=== PATIENT | male | born 1935 | race Asian ===

== ENCOUNTER 2017-11-18 14:03 | Emergency (ER) | payer OTHER ==
[~2017-11-18] VITALS: Ht 170.2 cm; Wt 86.2 kg
[~2017-11-18 14:03] MED LIST: ALBUAER3 IN; APIX2.5T PO; DEXT1SYP9 PO; DIG0125T PO; ENA2.5T PO; Furosemide PO; LEVO750T64 PO; METO50TA7 PO; POT10T PO
[2017-11-18 15:17] LABS: Basophils # (auto) 0.1 uL; Basophils % (auto) 1.3 % (0.0-2.0); Eosinophils # (auto) 0.5 uL; Hematocrit 39.8 % (41.0-53.0); Lymphocytes # (auto) 1.7 uL; Lymphocytes % (auto) 26.4 % (10.0-50.0); Mean Corpuscular Hemoglobin 29.7 pg (28.0-32.0); Mean Corpuscular Hgb Conc. 32.7 g/dL (32.0-36.0); Mean Corpuscular Volume 90.8 fL (80.0-100.0); Monocytes # (auto) 0.6 uL; Monocytes % (auto) 8.7 % (0.0-12.0); Neutrophils # (auto) 3.7 uL; Neutrophils % (auto) 56.6 % (37.0-80.0); Nucleated Red Blood Cells % 0.1 %; Platelet Count (auto) 167 10^3/uL (140-450); Red Blood Cells 4.38 10^6/uL (4.5-5.90); Red Cell Distribution Width 14.1 % (11.8-14.3); White Blood Cell 6.5 10^3/uL (4.4-10.8)
[2017-11-18 15:38] LABS: Albumin 3.2 g/dL (3.4-5.0); BUN/Creatinine Ratio 16.4; Bilirubin, Total 0.2 mg/dL (0.2-1.0); Calcium 8.5 mg/dL (8.5-10.1); Potassium 4.5 mmol/L (3.5-5.1); Total Protein 7.6 g/dL (6.4-8.2)
[2017-11-18 15:39] LABS: Urine Bacteria MOD /hpf (None Seen); Urine Blood 3+ /uL (Negative); Urine Mucus FEW (None Seen); Urine WBC 331 /hpf (0 - 3)
[2017-11-18 22:17] VITALS: BP 166/86
[2017-11-18] MEDS ORDERED: cefTRIAXone SOD 1,000 MG VL ONE (23:14)
[2017-11-18] MEDS ORDERED: cefTRIAXone 1GM/10ml IVPUSH 10 ML IV ONE (23:15)
== END 2017-11-19 00:21 | disposition home or self-care (01) ==
LOC: ER 14:03
DX: N39.0 Urinary tract infection, site not specified (principal); N42.9 Disorder of prostate, unspecified; R42 Dizziness and giddiness; I48.91 Unspecified atrial fibrillation; I25.10 Atherosclerotic heart disease of native coronary artery without angina pectoris; I13.0 Hypertensive heart and chronic kidney disease with heart failure and stage 1 through stage 4 chronic kidney disease, or unspecified chronic kidney disease; E11.22 Type 2 diabetes mellitus with diabetic chronic kidney disease; N18.9 Chronic kidney disease, unspecified; I50.9 Heart failure, unspecified; E78.5 Hyperlipidemia, unspecified; Z95.0 Presence of cardiac pacemaker; Z88.8 Allergy status to other drugs, medicaments and biological substances
CPT/HCPCS: 36415; 80053; 81001; 85025; 96374; 99284; J0696

== ENCOUNTER 2017-11-22 14:06 | Inpatient (IN) | payer OTHER ==
[~2017-11-22] VITALS: Ht 172.7 cm; Wt 89.3 kg
[2017-11-22] MEDS ORDERED: cefTRIAXone 1GM/10ml IVPUSH 10 ML IV ONE (15:15)
[2017-11-22 16:39] LABS: Hematocrit 39.8 % (41.0-53.0); Hemoglobin 12.8 g/dL (13.5-17.5); Mean Corpuscular Hemoglobin 29.2 pg (28.0-32.0); Mean Corpuscular Hgb Conc. 32.2 g/dL (32.0-36.0); Mean Corpuscular Volume 90.6 fL (80.0-100.0); Platelet Count (auto) 152 10^3/uL (140-450); Red Blood Cells 4.39 10^6/uL (4.5-5.90); Red Cell Distribution Width 14.1 % (11.8-14.3); White Blood Cell 4.5 10^3/uL (4.4-10.8)
[2017-11-22 16:43] LABS: Magnesium 2.3 mg/dL (1.6-2.6)
[2017-11-22 16:45] LABS: Albumin 3.1 g/dL (3.4-5.0); BUN/Creatinine Ratio 14.4; Bilirubin, Total 0.2 mg/dL (0.2-1.0); Calcium 8.1 mg/dL (8.5-10.1); Potassium 4.3 mmol/L (3.5-5.1); Total Protein 7.5 g/dL (6.4-8.2)
[2017-11-22 17:05] LABS: INR 0.97 (0.9-1.15); Partial Thromboplastin Time 27.5 sec (22.64-33.71); Prothrombin Time 10.6 sec (9.37-12.3)
[2017-11-22 17:16] LABS: Band Neutrophils % (manual) 0; Basophils % (manual) 0 (0.0-2.0); Blast Cells 0; Metamyelocytes % 0; Myelocytes % 0; Promyelocytes % 0; Reactive Lymphocytes 0
[2017-11-22] MEDS ORDERED: ASPirin-EC 81 mg tab PO ONE (17:30)
[2017-11-22] MEDS ORDERED: AZITHROMYCIN 500MG/ 250ML 250 ML IV ONE (17:30)
[2017-11-22 19:19] LABS: Eosinophils % (manual) 16 (0-7); Lymphocytes % (manual) 16 (10.0-50.0); Monocytes % (manual) 14 (0-12)
[2017-11-22] MEDS ORDERED: ACETAMINOPHEN 500 MG TAB PO PRN (21:30)
[2017-11-22] MEDS ORDERED: ONDANSETRON HCL 4 MG/2 ML VIAL IV PRN (21:30)
[2017-11-22] MEDS ORDERED: DEXTROSE (50%) 50ML SYRG IV PRN (21:30)
[2017-11-22] MEDS: InsuLIN REG 1unit/0.01ml Soln (100units/ml) SC SCH (21:48)
[2017-11-22] MEDS: APIXABAN 2.5 MG TAB PO SCH (21:48)
[2017-11-22] MEDS: ACCU-CHEK COMFORT CURVE STRIP VI SCH (21:49)
[2017-11-22 22:21] LABS: BUN/Creatinine Ratio 12.9; Calcium 8.2 mg/dL (8.5-10.1); Potassium 4.1 mmol/L (3.5-5.1)
[2017-11-22] MEDS ORDERED: methylPREDNISolone SOD SUCC 125 MG/2 ML VL ONE (22:38)
[2017-11-22 22:42] LABS: Basophils # (auto) 0 uL; Basophils % (auto) 0.5 % (0.0-2.0); Eosinophils # (auto) 0.3 uL; Eosinophils % (auto) 5.7 % (0.0-7.0); Hematocrit 39.1 % (41.0-53.0); Hemoglobin 12.7 g/dL (13.5-17.5); Lymphocytes # (auto) 0.6 uL; Lymphocytes % (auto) 12.5 % (10.0-50.0); Mean Corpuscular Hemoglobin 29.2 pg (28.0-32.0); Mean Corpuscular Hgb Conc. 32.5 g/dL (32.0-36.0); Mean Corpuscular Volume 89.8 fL (80.0-100.0); Monocytes # (auto) 0.8 uL; Monocytes % (auto) 15.6 % (0.0-12.0); Neutrophils # (auto) 3.1 uL; Neutrophils % (auto) 65.7 % (37.0-80.0); Nucleated Red Blood Cells % 0.2 %; Platelet Count (auto) 161 10^3/uL (140-450); Red Blood Cells 4.35 10^6/uL (4.5-5.90); White Blood Cell 4.8 10^3/uL (4.4-10.8)
[2017-11-22] MEDS ORDERED: methylPREDNISolone SOD SUCC 125 MG/2 ML VL IV ONE (22:45)
[2017-11-22] MEDS: ALBUTEROL SULF 2.5 MG/0.5ML(0.5%) NEB SOLN NEB SCH (23:40)
[2017-11-22] MEDS: IPRATROPIUM BROM 0.5 MG/2.5ML INH SOL NEB SCH (23:40)
[2017-11-22 23:46] LABS: Urine Bacteria FEW /hpf (None Seen); Urine Blood 3+ /uL (Negative); Urine Mucus FEW (None Seen); Urine Specific Gravity 1.021 (1.001-1.035); Urine WBC 56 /hpf (0 - 3)
[2017-11-23] MEDS: HYDROcodone-ACET 5/325MG TAB PO PRN ×2 (01:11→21:54)
[2017-11-23] MEDS ORDERED: FUROSEMIDE 40 MG/4 ML VIAL ONE (01:20)
[2017-11-23] MEDS ORDERED: FUROSEMIDE 40 MG/4 ML VIAL IV ONE (01:30)
[2017-11-23 01:42] VITALS: BP 165/93
[2017-11-23 05:47] LABS: Basophils # (auto) 0 uL; Basophils % (auto) 0.3 % (0.0-2.0); Eosinophils # (auto) 0 uL; Eosinophils % (auto) 0.1 % (0.0-7.0); Hematocrit 40.1 % (41.0-53.0); Hemoglobin 13.4 g/dL (13.5-17.5); Lymphocytes # (auto) 0.4 uL; Mean Corpuscular Hemoglobin 29.5 pg (28.0-32.0); Mean Corpuscular Hgb Conc. 33.4 g/dL (32.0-36.0); Mean Corpuscular Volume 88.2 fL (80.0-100.0); Monocytes # (auto) 0.1 uL; Monocytes % (auto) 1.6 % (0.0-12.0); Neutrophils # (auto) 3.4 uL; Platelet Count (auto) 175 10^3/uL (140-450); Red Blood Cells 4.55 10^6/uL (4.5-5.90); Red Cell Distribution Width 14.1 % (11.8-14.3); White Blood Cell 3.8 10^3/uL (4.4-10.8)
[2017-11-23 06:03] LABS: Potassium 4.1 mmol/L (3.5-5.1)
[2017-11-23 06:07] LABS: BUN/Creatinine Ratio 12.9; Calcium 8.7 mg/dL (8.5-10.1)
[2017-11-23] MEDS: ALBUTEROL SULF 2.5 MG/0.5ML(0.5%) NEB SOLN NEB SCH ×3 (06:49→20:56)
[2017-11-23] MEDS: IPRATROPIUM BROM 0.5 MG/2.5ML INH SOL NEB SCH ×3 (06:49→20:56)
[2017-11-23] MEDS: InsuLIN REG 1unit/0.01ml Soln (100units/ml) SC SCH ×4 (07:00→21:50)
[2017-11-23] MEDS: Boost Glucose Control 8 Ounces PO SCH (08:00)
[2017-11-23] MEDS: ACCU-CHEK COMFORT CURVE STRIP VI SCH ×4 (08:50→20:40)
[2017-11-23] MEDS: APIXABAN 2.5 MG TAB PO SCH ×2 (09:32→20:30)
[2017-11-23] MEDS: POTASSIUM CHL 10 Meq TABLET PO SCH (09:33)
[2017-11-23] MEDS: FUROSEMIDE 20 MG TAB PO SCH (09:33)
[2017-11-23] MEDS: METOPROLOL SUCCINATE XL 50 MG TAB PO SCH (09:34)
[2017-11-23] MEDS ORDERED: ALLO100T PO (15:34)
[2017-11-23] MEDS ORDERED: LORA10CA12 PO (15:34)
[2017-11-23] MEDS ORDERED: cefTRIAXone 1GM/10ml IVPUSH 10 ML IV ONE (15:45)
[2017-11-23] MEDS ORDERED: AZITHROMYCIN 500MG/ 250ML 250 ML IV ONE (15:45)
[2017-11-23 17:00] VITALS: BP 138/85
[2017-11-23] MEDS: ENALAPRIL MALEATE 2.5 MG TAB PO SCH (20:31)
[2017-11-24] VITALS (8 sets, daily range): BP systolic 121–151; BP diastolic 67–86
[2017-11-24] MEDS: IPRATROPIUM BROM 0.5 MG/2.5ML INH SOL NEB SCH ×5 (01:32→22:09)
[2017-11-24] MEDS: ALBUTEROL SULF 2.5 MG/0.5ML(0.5%) NEB SOLN NEB SCH ×5 (01:32→22:08)
[2017-11-24] MEDS: ACCU-CHEK COMFORT CURVE STRIP VI SCH ×4 (05:30→22:08)
[2017-11-24] MEDS: InsuLIN REG 1unit/0.01ml Soln (100units/ml) SC SCH ×4 (05:30→22:19)
[2017-11-24 06:02] LABS: Basophils # (auto) 0 uL; Eosinophils # (auto) 0 uL; Hematocrit 40.1 % (41.0-53.0); Hemoglobin 13.2 g/dL (13.5-17.5); Lymphocytes # (auto) 0.9 uL; Lymphocytes % (auto) 12.3 % (10.0-50.0); Mean Corpuscular Hemoglobin 29.4 pg (28.0-32.0); Mean Corpuscular Hgb Conc. 32.8 g/dL (32.0-36.0); Mean Corpuscular Volume 89.6 fL (80.0-100.0); Monocytes % (auto) 12.7 % (0.0-12.0); Neutrophils # (auto) 5.8 uL; Platelet Count (auto) 181 10^3/uL (140-450); Red Blood Cells 4.48 10^6/uL (4.5-5.90); White Blood Cell 7.7 10^3/uL (4.4-10.8)
[2017-11-24] MEDS: guaiFENesin 200 MG/10 ML UD GT PRN ×3 (06:17→17:58)
[2017-11-24 06:20] LABS: Albumin 3.2 g/dL (3.4-5.0); Calcium 8.5 mg/dL (8.5-10.1); Potassium 3.9 mmol/L (3.5-5.1)
[2017-11-24 06:23] LABS: BUN/Creatinine Ratio 20.6
[2017-11-24 06:26] LABS: Bilirubin, Total 0.2 mg/dL (0.2-1.0); Total Protein 7.8 g/dL (6.4-8.2)
[2017-11-24] MEDS: Boost Glucose Control 8 Ounces PO SCH ×3 (08:00→18:00)
[2017-11-24] MEDS: cefTRIAXone 1GM/10ml IVPUSH 10 ML IV SCH (09:37)
[2017-11-24] MEDS ORDERED: AZITHROMYCIN 500MG/ 250ML 250 ML IV SCH (10:00)
[2017-11-24] MEDS: APIXABAN 2.5 MG TAB PO SCH ×2 (10:36→21:58)
[2017-11-24] MEDS: POTASSIUM CHL 10 Meq TABLET PO SCH (10:37)
[2017-11-24] MEDS: ALLOPURINOL 100 MG TAB PO SCH (10:37)
[2017-11-24] MEDS: METOPROLOL SUCCINATE XL 50 MG TAB PO SCH (10:38)
[2017-11-24] MEDS: ENALAPRIL MALEATE 2.5 MG TAB PO SCH ×2 (10:38→21:59)
[2017-11-24] MEDS: FUROSEMIDE 20 MG TAB PO SCH (10:38)
[2017-11-24] MEDS ORDERED: methylPREDNISolone SOD SUCC 125 MG/2 ML VL IV ONE (13:45)
[2017-11-24] MEDS: methylPREDNISolone SOD SUCC 125 MG/2 ML VL IV SCH (22:01)
[2017-11-24] MEDS: LORazepam 0.5 MG TAB PO PRN (22:20)
[2017-11-24] MEDS ORDERED: DILTIAZEM HCL 25 MG/5 ML VIAL IV ONE (22:45)
[2017-11-25] VITALS (7 sets, daily range): BP systolic 119–149; BP diastolic 52–90
[2017-11-25] MEDS: IPRATROPIUM BROM 0.5 MG/2.5ML INH SOL NEB SCH ×6 (02:37→22:06)
[2017-11-25] MEDS: ALBUTEROL SULF 2.5 MG/0.5ML(0.5%) NEB SOLN NEB SCH ×6 (02:37→22:06)
[2017-11-25] MEDS ORDERED: guaiFENesin-DM 100/10mg/5ml SYR PO ONE (05:00)
[2017-11-25] MEDS: ACCU-CHEK COMFORT CURVE STRIP VI SCH ×4 (05:07→21:51)
[2017-11-25] MEDS: InsuLIN REG 1unit/0.01ml Soln (100units/ml) SC SCH ×4 (06:29→21:51)
[2017-11-25] MEDS ORDERED: NITROGLYCERIN 0.4 MG SL TAB SL PRN (06:30)
[2017-11-25] MEDS ORDERED: MORPHINE SULFATE 4 MG/ML SYR/VIAL IV PRN (06:30)
[2017-11-25 07:13] LABS: Basophils # (auto) 0 uL; Basophils % (auto) 0.1 % (0.0-2.0); Eosinophils # (auto) 0 uL; Hematocrit 38.5 % (41.0-53.0); Hemoglobin 12.6 g/dL (13.5-17.5); Lymphocytes # (auto) 0.6 uL; Lymphocytes % (auto) 11.1 % (10.0-50.0); Mean Corpuscular Hemoglobin 29.2 pg (28.0-32.0); Mean Corpuscular Hgb Conc. 32.7 g/dL (32.0-36.0); Mean Corpuscular Volume 89.4 fL (80.0-100.0); Monocytes # (auto) 0.1 uL; Monocytes % (auto) 2.6 % (0.0-12.0); Neutrophils # (auto) 4.6 uL; Neutrophils % (auto) 86.2 % (37.0-80.0); Platelet Count (auto) 187 10^3/uL (140-450); Red Blood Cells 4.31 10^6/uL (4.5-5.90); White Blood Cell 5.4 10^3/uL (4.4-10.8)
[2017-11-25 07:35] LABS: Albumin 3.1 g/dL (3.4-5.0); BUN/Creatinine Ratio 25.4; Bilirubin, Total 0.3 mg/dL (0.2-1.0); Calcium 8.3 mg/dL (8.5-10.1); Potassium 4.2 mmol/L (3.5-5.1); Total Protein 7.6 g/dL (6.4-8.2)
[2017-11-25] MEDS: Boost Glucose Control 8 Ounces PO SCH ×3 (08:34→17:57)
[2017-11-25] MEDS: HYDROcodone-ACET 5/325MG TAB PO PRN ×2 (10:30→21:47)
[2017-11-25] MEDS: cefTRIAXone 1GM/10ml IVPUSH 10 ML IV SCH (10:30)
[2017-11-25] MEDS: ALLOPURINOL 100 MG TAB PO SCH (10:30)
[2017-11-25] MEDS: POTASSIUM CHL 10 Meq TABLET PO SCH (10:31)
[2017-11-25] MEDS: AZITHROMYCIN 250 MG TAB PO SCH (10:31)
[2017-11-25] MEDS: FUROSEMIDE 20 MG TAB PO SCH (10:31)
[2017-11-25] MEDS: METOPROLOL SUCCINATE XL 50 MG TAB PO SCH (10:32)
[2017-11-25] MEDS: ENALAPRIL MALEATE 2.5 MG TAB PO SCH ×2 (10:32→21:46)
[2017-11-25] MEDS: APIXABAN 2.5 MG TAB PO SCH ×2 (10:33→21:46)
[2017-11-25] MEDS: methylPREDNISolone SOD SUCC 125 MG/2 ML VL IV SCH ×2 (10:36→21:45)
[2017-11-25] MEDS: guaiFENesin 200 MG/10 ML UD GT PRN (17:15)
[2017-11-26] MEDS: IPRATROPIUM BROM 0.5 MG/2.5ML INH SOL NEB SCH ×6 (02:00→22:21)
[2017-11-26] MEDS: ALBUTEROL SULF 2.5 MG/0.5ML(0.5%) NEB SOLN NEB SCH ×6 (02:00→22:21)
[2017-11-26 02:56] VITALS: BP 143/81
[2017-11-26 05:00] VITALS: BP 148/93
[2017-11-26] MEDS: guaiFENesin 200 MG/10 ML UD GT PRN ×2 (05:34→21:10)
[2017-11-26] MEDS: InsuLIN REG 1unit/0.01ml Soln (100units/ml) SC SCH ×4 (06:52→21:17)
[2017-11-26] MEDS: ACCU-CHEK COMFORT CURVE STRIP VI SCH ×4 (06:53→21:17)
[2017-11-26] MEDS: ENALAPRIL MALEATE 2.5 MG TAB PO SCH ×2 (06:57→21:12)
[2017-11-26] MEDS: Boost Glucose Control 8 Ounces PO SCH ×3 (08:50→18:06)
[2017-11-26 09:22] VITALS: BP 161/92
[2017-11-26] MEDS: cefTRIAXone 1GM/10ml IVPUSH 10 ML IV SCH (09:29)
[2017-11-26] MEDS: APIXABAN 2.5 MG TAB PO SCH ×2 (10:24→21:11)
[2017-11-26] MEDS: methylPREDNISolone SOD SUCC 125 MG/2 ML VL IV SCH ×2 (10:24→21:14)
[2017-11-26] MEDS: AZITHROMYCIN 250 MG TAB PO SCH (10:25)
[2017-11-26] MEDS: FUROSEMIDE 20 MG TAB PO SCH (10:25)
[2017-11-26] MEDS: ALLOPURINOL 100 MG TAB PO SCH (10:25)
[2017-11-26] MEDS: POTASSIUM CHL 10 Meq TABLET PO SCH (10:33)
[2017-11-26] MEDS: METOPROLOL SUCCINATE XL 50 MG TAB PO SCH (10:34)
[2017-11-26] MEDS: HYDROcodone-ACET 5/325MG TAB PO PRN ×2 (12:41→21:13)
[2017-11-26 13:00] VITALS: BP 127/71
[2017-11-26 17:00] VITALS: BP 143/79
[2017-11-26 22:03] VITALS: BP 152/80
[2017-11-27] MEDS: MORPHINE SULF INJ 2 MG/ML SYRINGE 1ML IV PRN ×2 (01:16→11:55)
[2017-11-27] MEDS: LORazepam 0.5 MG TAB PO PRN (01:23)
[2017-11-27] MEDS: ALBUTEROL SULF 2.5 MG/0.5ML(0.5%) NEB SOLN NEB SCH ×6 (02:00→22:35)
[2017-11-27] MEDS: IPRATROPIUM BROM 0.5 MG/2.5ML INH SOL NEB SCH ×6 (02:00→22:35)
[2017-11-27] MEDS: HYDROcodone-ACET 5/325MG TAB PO PRN ×2 (05:15→22:08)
[2017-11-27] MEDS: guaiFENesin 200 MG/10 ML UD GT PRN ×2 (05:15→22:28)
[2017-11-27 05:30] VITALS: BP 152/91
[2017-11-27] MEDS: ACCU-CHEK COMFORT CURVE STRIP VI SCH ×4 (06:18→22:27)
[2017-11-27] MEDS: InsuLIN REG 1unit/0.01ml Soln (100units/ml) SC SCH ×4 (06:18→22:00)
[2017-11-27 08:00] VITALS: BP 140/81
[2017-11-27] MEDS: cefTRIAXone 1GM/10ml IVPUSH 10 ML IV SCH (09:54)
[2017-11-27] MEDS: Boost Glucose Control 8 Ounces PO SCH ×3 (09:54→17:36)
[2017-11-27] MEDS: methylPREDNISolone SOD SUCC 125 MG/2 ML VL IV SCH ×2 (09:55→22:09)
[2017-11-27] MEDS: APIXABAN 2.5 MG TAB PO SCH ×2 (09:55→22:08)
[2017-11-27] MEDS: POTASSIUM CHL 10 Meq TABLET PO SCH (09:55)
[2017-11-27] MEDS: FUROSEMIDE 20 MG TAB PO SCH (09:56)
[2017-11-27] MEDS: AZITHROMYCIN 250 MG TAB PO SCH (09:56)
[2017-11-27] MEDS: ENALAPRIL MALEATE 2.5 MG TAB PO SCH ×2 (09:57→22:08)
[2017-11-27] MEDS: ALLOPURINOL 100 MG TAB PO SCH (09:57)
[2017-11-27] MEDS: METOPROLOL SUCCINATE XL 50 MG TAB PO SCH (09:57)
[2017-11-27 12:00] VITALS: BP 148/92
[2017-11-27 17:03] VITALS: BP 114/68
[2017-11-27 22:00] VITALS: BP 131/68
[2017-11-28] MEDS: IPRATROPIUM BROM 0.5 MG/2.5ML INH SOL NEB SCH ×6 (02:21→23:06)
[2017-11-28] MEDS: ALBUTEROL SULF 2.5 MG/0.5ML(0.5%) NEB SOLN NEB SCH ×6 (02:21→23:06)
[2017-11-28 05:00] VITALS: BP 142/71
[2017-11-28] MEDS: InsuLIN REG 1unit/0.01ml Soln (100units/ml) SC SCH ×4 (05:40→21:44)
[2017-11-28] MEDS: ACCU-CHEK COMFORT CURVE STRIP VI SCH ×4 (05:40→21:44)
[2017-11-28] MEDS: HYDROcodone-ACET 5/325MG TAB PO PRN (06:18)
[2017-11-28] MEDS: Boost Glucose Control 8 Ounces PO SCH ×3 (08:52→18:02)
[2017-11-28 09:00] VITALS: BP 155/81
[2017-11-28] MEDS: cefTRIAXone 1GM/10ml IVPUSH 10 ML IV SCH (09:35)
[2017-11-28] MEDS: METOPROLOL SUCCINATE XL 50 MG TAB PO SCH (09:45)
[2017-11-28] MEDS: methylPREDNISolone SOD SUCC 125 MG/2 ML VL IV SCH ×2 (09:45→21:12)
[2017-11-28] MEDS: FUROSEMIDE 20 MG TAB PO SCH (09:46)
[2017-11-28] MEDS: ENALAPRIL MALEATE 2.5 MG TAB PO SCH ×2 (09:46→21:12)
[2017-11-28] MEDS: ALLOPURINOL 100 MG TAB PO SCH (09:46)
[2017-11-28] MEDS: APIXABAN 2.5 MG TAB PO SCH ×2 (09:47→21:12)
[2017-11-28] MEDS: AZITHROMYCIN 250 MG TAB PO SCH (09:47)
[2017-11-28] MEDS: POTASSIUM CHL 10 Meq TABLET PO SCH (09:47)
[2017-11-28] MEDS: guaiFENesin 200 MG/10 ML UD GT PRN ×2 (11:10→21:13)
[2017-11-28 13:00] VITALS: BP 151/75
[2017-11-28] MEDS: MORPHINE SULF INJ 2 MG/ML SYRINGE 1ML IV PRN ×2 (14:47→21:09)
[2017-11-28 17:26] VITALS: BP 150/79
[2017-11-28 21:36] VITALS: BP 165/90
[2017-11-29] MEDS: ALBUTEROL SULF 2.5 MG/0.5ML(0.5%) NEB SOLN NEB SCH ×6 (02:52→22:08)
[2017-11-29] MEDS: IPRATROPIUM BROM 0.5 MG/2.5ML INH SOL NEB SCH ×6 (02:52→22:08)
[2017-11-29 05:19] VITALS: BP 153/78
[2017-11-29] MEDS: ACCU-CHEK COMFORT CURVE STRIP VI SCH ×4 (05:35→22:06)
[2017-11-29 05:50] LABS: Albumin 2.8 g/dL (3.4-5.0); BUN/Creatinine Ratio 42.7; Basophils # (auto) 0 uL; Basophils % (auto) 0.1 % (0.0-2.0); Calcium 8.1 mg/dL (8.5-10.1); Eosinophils # (auto) 0 uL; Hematocrit 38.2 % (41.0-53.0); Hemoglobin 12.2 g/dL (13.5-17.5); Lymphocytes # (auto) 0.7 uL; Lymphocytes % (auto) 7.5 % (10.0-50.0); Mean Corpuscular Hemoglobin 28.2 pg (28.0-32.0); Mean Corpuscular Volume 88.1 fL (80.0-100.0); Monocytes # (auto) 0.3 uL; Monocytes % (auto) 2.7 % (0.0-12.0); Neutrophils # (auto) 8.5 uL; Neutrophils % (auto) 89.7 % (37.0-80.0); Nucleated Red Blood Cells % 0.2 %; Platelet Count (auto) 178 10^3/uL (140-450); Potassium 4.5 mmol/L (3.5-5.1); Red Blood Cells 4.34 10^6/uL (4.5-5.90); Red Cell Distribution Width 13.9 % (11.8-14.3); White Blood Cell 9.4 10^3/uL (4.4-10.8)
[2017-11-29 05:53] LABS: Bilirubin, Total 0.2 mg/dL (0.2-1.0); Total Protein 6.6 g/dL (6.4-8.2)
[2017-11-29] MEDS: InsuLIN REG 1unit/0.01ml Soln (100units/ml) SC SCH ×4 (06:26→22:17)
[2017-11-29] MEDS: Boost Glucose Control 8 Ounces PO SCH ×3 (08:00→18:01)
[2017-11-29 09:00] VITALS: BP 136/74
[2017-11-29] MEDS: methylPREDNISolone SOD SUCC 125 MG/2 ML VL IV SCH ×2 (09:08→22:05)
[2017-11-29] MEDS: ALLOPURINOL 100 MG TAB PO SCH (09:09)
[2017-11-29] MEDS: METOPROLOL SUCCINATE XL 50 MG TAB PO SCH (09:09)
[2017-11-29] MEDS: APIXABAN 2.5 MG TAB PO SCH ×2 (09:09→22:05)
[2017-11-29] MEDS: POTASSIUM CHL 10 Meq TABLET PO SCH (09:09)
[2017-11-29] MEDS: FUROSEMIDE 20 MG TAB PO SCH (09:10)
[2017-11-29] MEDS: AZITHROMYCIN 250 MG TAB PO SCH (09:11)
[2017-11-29] MEDS: ENALAPRIL MALEATE 2.5 MG TAB PO SCH ×2 (09:12→22:06)
[2017-11-29] MEDS: cefTRIAXone 1GM/10ml IVPUSH 10 ML IV SCH (09:15)
[2017-11-29 12:30] VITALS: BP 145/75
[2017-11-29 13:00] VITALS: BP 168/96
[2017-11-29 16:58] VITALS: BP 134/74
[2017-11-29 22:00] VITALS: BP 157/78
[2017-11-30] MEDS: IPRATROPIUM BROM 0.5 MG/2.5ML INH SOL NEB SCH ×6 (02:28→23:17)
[2017-11-30] MEDS: ALBUTEROL SULF 2.5 MG/0.5ML(0.5%) NEB SOLN NEB SCH ×6 (02:28→23:18)
[2017-11-30 05:00] VITALS: BP 140/76
[2017-11-30 05:57] LABS: Basophils # (auto) 0 uL; Basophils % (auto) 0.1 % (0.0-2.0); Eosinophils # (auto) 0 uL; Hematocrit 38.9 % (41.0-53.0); Hemoglobin 12.6 g/dL (13.5-17.5); Lymphocytes # (auto) 0.6 uL; Lymphocytes % (auto) 6.4 % (10.0-50.0); Mean Corpuscular Hemoglobin 28.9 pg (28.0-32.0); Mean Corpuscular Hgb Conc. 32.4 g/dL (32.0-36.0); Mean Corpuscular Volume 89.2 fL (80.0-100.0); Monocytes # (auto) 0.2 uL; Monocytes % (auto) 2.7 % (0.0-12.0); Neutrophils # (auto) 8.3 uL; Neutrophils % (auto) 90.8 % (37.0-80.0); Nucleated Red Blood Cells % 0.2 %; Platelet Count (auto) 185 10^3/uL (140-450); Red Blood Cells 4.36 10^6/uL (4.5-5.90); Red Cell Distribution Width 14.1 % (11.8-14.3); White Blood Cell 9.1 10^3/uL (4.4-10.8)
[2017-11-30 06:13] LABS: INR 1.1 (0.9-1.15); Partial Thromboplastin Time 25.4 sec (22.64-33.71)
[2017-11-30] MEDS: InsuLIN REG 1unit/0.01ml Soln (100units/ml) SC SCH ×3 (06:27→21:55)
[2017-11-30] MEDS: ACCU-CHEK COMFORT CURVE STRIP VI SCH ×3 (06:27→21:54)
[2017-11-30 06:44] LABS: BUN/Creatinine Ratio 41.5
[2017-11-30] MEDS: Boost Glucose Control 8 Ounces PO SCH ×2 (08:00→12:00)
[2017-11-30 09:00] VITALS: BP 143/74
[2017-11-30] MEDS: HYDROcodone-ACET 5/325MG TAB PO PRN ×2 (09:13→21:11)
[2017-11-30] MEDS: ENALAPRIL MALEATE 2.5 MG TAB PO SCH ×2 (09:14→21:56)
[2017-11-30] MEDS: methylPREDNISolone SOD SUCC 125 MG/2 ML VL IV SCH ×2 (09:15→21:55)
[2017-11-30] MEDS: cefTRIAXone 1GM/10ml IVPUSH 10 ML IV SCH (09:15)
[2017-11-30] MEDS: METOPROLOL SUCCINATE XL 50 MG TAB PO SCH (09:17)
[2017-11-30] MEDS: ALLOPURINOL 100 MG TAB PO SCH (10:00)
[2017-11-30] MEDS: POTASSIUM CHL 10 Meq TABLET PO SCH (10:00)
[2017-11-30] MEDS: AZITHROMYCIN 250 MG TAB PO SCH (10:00)
[2017-11-30] MEDS: FUROSEMIDE 20 MG TAB PO SCH (10:00)
[2017-11-30] MEDS: APIXABAN 2.5 MG TAB PO SCH ×2 (10:00→21:55)
[2017-11-30] MEDS ORDERED: IOHEXOL 350 MG/ML 100ML IJ ONE (10:34)
[2017-11-30] MEDS ORDERED: LIDOCAINE 2%HCL (LOCAL ANESTH.) INJ 20ML MDV ONE (10:34)
[2017-11-30] MEDS ORDERED: MIDAZOLAM HCL 1MG/1ML-2 ML VIAL ONE (11:17)
[2017-11-30] MEDS ORDERED: fentaNYL CITRATE 100 MCG/2 ML VL ONE (11:17)
[2017-11-30] MEDS ORDERED: ANGIOMAX 250 MG VIAL IV ONE (11:17)
[2017-11-30] MEDS ORDERED: CLOPIDOGREL 300 MG TAB ONE (12:11)
[2017-11-30 17:00] VITALS: BP 138/75
[2017-11-30 21:22] VITALS: BP 135/74
[2017-12-01] MEDS: IPRATROPIUM BROM 0.5 MG/2.5ML INH SOL NEB SCH ×6 (02:00→21:59)
[2017-12-01] MEDS: ALBUTEROL SULF 2.5 MG/0.5ML(0.5%) NEB SOLN NEB SCH ×6 (02:00→21:59)
[2017-12-01 05:15] VITALS: BP 140/72
[2017-12-01] MEDS: InsuLIN REG 1unit/0.01ml Soln (100units/ml) SC SCH ×4 (06:10→21:30)
[2017-12-01] MEDS: ACCU-CHEK COMFORT CURVE STRIP VI SCH ×4 (06:10→21:14)
[2017-12-01] MEDS: Boost Glucose Control 8 Ounces PO SCH ×3 (08:00→18:10)
[2017-12-01 08:51] VITALS: BP 149/83
[2017-12-01] MEDS: cefTRIAXone 1GM/10ml IVPUSH 10 ML IV SCH (09:35)
[2017-12-01] MEDS: CLOPIDOGREL BISULFATE 75 MG TAB PO SCH (10:40)
[2017-12-01] MEDS: AZITHROMYCIN 250 MG TAB PO SCH (10:42)
[2017-12-01] MEDS: ALLOPURINOL 100 MG TAB PO SCH (10:43)
[2017-12-01] MEDS: ENALAPRIL MALEATE 2.5 MG TAB PO SCH ×2 (10:46→21:13)
[2017-12-01] MEDS: APIXABAN 2.5 MG TAB PO SCH ×2 (10:47→21:14)
[2017-12-01] MEDS: FUROSEMIDE 20 MG TAB PO SCH (10:47)
[2017-12-01] MEDS: methylPREDNISolone SOD SUCC 125 MG/2 ML VL IV SCH ×2 (10:48→21:13)
[2017-12-01] MEDS: METOPROLOL SUCCINATE XL 50 MG TAB PO SCH (10:52)
[2017-12-01] MEDS: POTASSIUM CHL 10 Meq TABLET PO SCH (10:52)
[2017-12-01 12:52] VITALS: BP 136/71
[2017-12-01 16:40] VITALS: BP 132/81
[2017-12-01 20:00] VITALS: BP 149/83
[2017-12-01 21:30] VITALS: BP 150/81
[2017-12-02] MEDS: ALBUTEROL SULF 2.5 MG/0.5ML(0.5%) NEB SOLN NEB SCH ×4 (03:05→14:00)
[2017-12-02] MEDS: IPRATROPIUM BROM 0.5 MG/2.5ML INH SOL NEB SCH ×4 (03:05→14:00)
[2017-12-02 05:00] VITALS: BP 143/80
[2017-12-02] MEDS: InsuLIN REG 1unit/0.01ml Soln (100units/ml) SC SCH ×2 (06:24→12:30)
[2017-12-02] MEDS: ACCU-CHEK COMFORT CURVE STRIP VI SCH ×2 (06:24→12:30)
[2017-12-02 08:00] VITALS: BP 158/86
[2017-12-02 09:00] VITALS: BP 158/86
[2017-12-02] MEDS: CLOPIDOGREL BISULFATE 75 MG TAB PO SCH (10:05)
[2017-12-02] MEDS: methylPREDNISolone SOD SUCC 125 MG/2 ML VL IV SCH (10:05)
[2017-12-02] MEDS: APIXABAN 2.5 MG TAB PO SCH (10:06)
[2017-12-02] MEDS: AZITHROMYCIN 250 MG TAB PO SCH (10:06)
[2017-12-02] MEDS: POTASSIUM CHL 10 Meq TABLET PO SCH (10:06)
[2017-12-02] MEDS: ENALAPRIL MALEATE 2.5 MG TAB PO SCH (10:06)
[2017-12-02] MEDS: FUROSEMIDE 20 MG TAB PO SCH (10:06)
[2017-12-02] MEDS: ALLOPURINOL 100 MG TAB PO SCH (10:06)
[2017-12-02] MEDS: cefTRIAXone 1GM/10ml IVPUSH 10 ML IV SCH (10:07)
[2017-12-02] MEDS: METOPROLOL SUCCINATE XL 50 MG TAB PO SCH (10:07)
[2017-12-02] MEDS: Boost Glucose Control 8 Ounces PO SCH ×2 (10:08→12:00)
[2017-12-02 13:00] VITALS: BP 127/95
[2017-12-02 14:31] VITALS: BP 127/95
== END 2017-12-02 15:42 | disposition home or self-care (01) | DRG 246 ==
LOC: ER 14:06 → TELE 14:07 → TELE-WESTW 11-23 07:56
PROVIDERS: ADMIT Nurse Practitioner Family; ATTEND Family Medicine
PROC: B2111ZZ Fluoroscopy of Multiple Coronary Arteries using Low Osmolar Contrast (ICD-10-PCS; principal; 2017-11-21)
PROC: 027034Z Dilation of Coronary Artery, One Artery with Drug-eluting Intraluminal Device, Percutaneous Approach (ICD-10-PCS; 2017-11-21)
PROC: B2161ZZ Fluoroscopy of Right and Left Heart using Low Osmolar Contrast (ICD-10-PCS; 2017-11-21)
PROC: 4A023N8 Measurement of Cardiac Sampling and Pressure, Bilateral, Percutaneous Approach (ICD-10-PCS; 2017-11-21)
DX: T82.855A Stenosis of coronary artery stent, initial encounter (principal); J18.1 Lobar pneumonia, unspecified organism; I50.23 Acute on chronic systolic (congestive) heart failure; E44.0 Moderate protein-calorie malnutrition; I13.0 Hypertensive heart and chronic kidney disease with heart failure and stage 1 through stage 4 chronic kidney disease, or unspecified chronic kidney disease; E11.65 Type 2 diabetes mellitus with hyperglycemia; J44.0 Chronic obstructive pulmonary disease with (acute) lower respiratory infection; J44.1 Chronic obstructive pulmonary disease with (acute) exacerbation; N18.9 Chronic kidney disease, unspecified; Y83.1 Surgical operation with implant of artificial internal device as the cause of abnormal reaction of the patient, or of later complication, without mention of misadventure at the time of the procedure; I48.91 Unspecified atrial fibrillation; M10.9 Gout, unspecified; E78.5 Hyperlipidemia, unspecified; D64.9 Anemia, unspecified; I25.10 Atherosclerotic heart disease of native coronary artery without angina pectoris
CPT/HCPCS: 36415; 71046; 80048; 80053; 81001; 82962; 83036; 83605; 83735; 83880; 84443; 84484; 85007; 85025; 85027; 85610; 85730; 86850; 86900; 86901; 87040; 87070; 87081; 87205; 92928; 93005; 93306; 93460; 94640; 94761; 96365; 96366; 96375; 99152; 99153; C1874; J1815; J2250

== ENCOUNTER 2017-12-04 13:46 | Inpatient (IN) | payer OTHER ==
[~2017-12-04] VITALS: Ht 182.9 cm; Wt 84.9 kg
[~2017-12-04 13:46] MED LIST changes: +ALLO100T PO; +LORA10CA12 PO
[2017-12-04] MEDS ORDERED: MORPHINE SULFATE 10 MG/ML INJ 1ML SDV IV PRN (15:00)
[2017-12-04] MEDS ORDERED: SODIUM CHLORIDE 0.9% 1,000 ML IV ONE (15:00)
[2017-12-04] MEDS ORDERED: ONDANSETRON HCL 4 MG/2 ML VIAL IV ONE (15:30)
[2017-12-04 16:17] LABS: Basophils # (auto) 0.1 uL; Basophils % (auto) 0.5 % (0.0-2.0); Eosinophils # (auto) 0.2 uL; Eosinophils % (auto) 1.8 % (0.0-7.0); Hemoglobin 13.9 g/dL (13.5-17.5); Lymphocytes # (auto) 0.8 uL; Lymphocytes % (auto) 7.1 % (10.0-50.0); Mean Corpuscular Hemoglobin 28.7 pg (28.0-32.0); Mean Corpuscular Hgb Conc. 32.4 g/dL (32.0-36.0); Mean Corpuscular Volume 88.4 fL (80.0-100.0); Monocytes # (auto) 0.8 uL; Monocytes % (auto) 7.6 % (0.0-12.0); Neutrophils # (auto) 9.1 uL; Nucleated Red Blood Cells % 0.1 %; Platelet Count (auto) 152 10^3/uL (140-450); Red Blood Cells 4.87 10^6/uL (4.5-5.90); Red Cell Distribution Width 14.5 % (11.8-14.3)
[2017-12-04 16:28] LABS: Albumin 2.3 g/dL (3.4-5.0); BUN/Creatinine Ratio 28.8; Calcium 7.2 mg/dL (8.5-10.1); Magnesium 2.6 mg/dL (1.6-2.6); Potassium 3.9 mmol/L (3.5-5.1)
[2017-12-04 16:31] LABS: Bilirubin, Total 0.4 mg/dL (0.2-1.0); Total Protein 5.5 g/dL (6.4-8.2)
[2017-12-04 16:35] LABS: INR 1.1 (0.9-1.15); Partial Thromboplastin Time 27.9 sec (22.64-33.71)
[2017-12-04] MEDS ORDERED: FUROSEMIDE 40 MG/4 ML VIAL IV ONE (17:15)
[2017-12-04] MEDS ORDERED: ASPirin 325 MG TAB PO SCH (18:00)
[2017-12-04] MEDS ORDERED: TEMAZEPAM 15 MG CAP PO PRN (18:00)
[2017-12-04] MEDS ORDERED: ONDANSETRON HCL 4 MG/2 ML VIAL IV PRN (18:00)
[2017-12-04] MEDS ORDERED: METOCLOPRAMIDE HCL 5MG/ml INJ 2ml VIAL IV PRN (18:00)
[2017-12-04] MEDS ORDERED: NITROGLYCERIN 0.4 MG SL TAB SL PRN (18:00)
[2017-12-04] MEDS ORDERED: MORPHINE SULF INJ 2 MG/ML SYRINGE 1ML IV PRN ×2 (18:00)
[2017-12-04] MEDS ORDERED: DOCUSATE SOD 100 MG CAP PO PRN (18:00)
[2017-12-04] MEDS ORDERED: LORazepam 0.5 MG TAB PO PRN (18:00)
[2017-12-04] MEDS: POTASSIUM CHL 10 Meq TABLET PO SCH (18:15)
[2017-12-04 18:40] VITALS: BP 117/95
[2017-12-04 20:00] VITALS: BP 104/60
[2017-12-04] MEDS: ALBUTEROL SULF 2.5 MG/0.5ML(0.5%) NEB SOLN NEB PRN (21:33)
[2017-12-04 21:59] VITALS: BP 104/60
[2017-12-04] MEDS: METOPROLOL SUCCINATE XL 50 MG TAB PO SCH (22:00)
[2017-12-04] MEDS: APIXABAN 2.5 MG TAB PO SCH (22:21)
[2017-12-05 04:40] VITALS: BP 119/72
[2017-12-05] MEDS: FUROSEMIDE 40 MG/4 ML VIAL IV SCH ×2 (05:33→17:52)
[2017-12-05 08:00] VITALS: BP_SYST 114; BP_SYST 119; BP_DIAS 72
[2017-12-05] MEDS: LORATADINE 10 MG TAB PO SCH (10:26)
[2017-12-05] MEDS: APIXABAN 2.5 MG TAB PO SCH ×2 (10:27→22:10)
[2017-12-05] MEDS: POTASSIUM CHL 10 Meq TABLET PO SCH (10:27)
[2017-12-05] MEDS: CLOPIDOGREL BISULFATE 75 MG TAB PO SCH (10:27)
[2017-12-05] MEDS: METOPROLOL SUCCINATE XL 50 MG TAB PO SCH ×2 (10:28→22:11)
[2017-12-05] MEDS: ALLOPURINOL 100 MG TAB PO SCH (10:29)
[2017-12-05 12:00] VITALS: BP 109/66
[2017-12-05 17:21] VITALS: BP 100/70
[2017-12-05 20:00] VITALS: BP 126/69
[2017-12-05 22:00] VITALS: BP_SYST 126; BP_SYST 149; BP_DIAS 69; BP_DIAS 78
[2017-12-06] VITALS (7 sets, daily range): BP systolic 98–113; BP diastolic 64–70
[2017-12-06] MEDS: FUROSEMIDE 40 MG/4 ML VIAL IV SCH ×2 (06:12→18:32)
[2017-12-06] MEDS: ALBUTEROL SULF 2.5 MG/0.5ML(0.5%) NEB SOLN NEB PRN ×3 (06:22→19:22)
[2017-12-06] MEDS ORDERED: LEVOFLOXACIN 750MG 150 ML IV ONE (09:45)
[2017-12-06] MEDS: DIGOXIN 0.125 MG TAB PO SCH (10:18)
[2017-12-06] MEDS: ALLOPURINOL 100 MG TAB PO SCH (10:18)
[2017-12-06] MEDS: CLOPIDOGREL BISULFATE 75 MG TAB PO SCH (10:18)
[2017-12-06] MEDS: LORATADINE 10 MG TAB PO SCH (10:19)
[2017-12-06] MEDS: METOPROLOL SUCCINATE XL 50 MG TAB PO SCH ×2 (10:19→22:00)
[2017-12-06] MEDS: POTASSIUM CHL 10 Meq TABLET PO SCH (10:20)
[2017-12-06] MEDS: APIXABAN 2.5 MG TAB PO SCH ×2 (10:20→22:16)
[2017-12-06] MEDS: BUDESONIDE (INHALATION) 0.5 MG/2 ML NEB NEB SCH ×2 (11:02→19:22)
[2017-12-06] MEDS: ACETAMINOPHEN 325 MG TAB PO PRN (11:08)
[2017-12-06] MEDS: PROMETHAZINE W/CODEINE 5 ML ORAL SYRUP PO PRN ×2 (11:08→22:19)
[2017-12-07] VITALS (7 sets, daily range): BP systolic 94–109; BP diastolic 47–76
[2017-12-07] MEDS: PROMETHAZINE W/CODEINE 5 ML ORAL SYRUP PO PRN (03:06)
[2017-12-07] MEDS: FUROSEMIDE 40 MG/4 ML VIAL IV SCH ×2 (06:37→18:41)
[2017-12-07 06:54] LABS: Basophils # (auto) 0.1 uL; Basophils % (auto) 0.5 % (0.0-2.0); Eosinophils # (auto) 0.3 uL; Eosinophils % (auto) 2.5 % (0.0-7.0); Hematocrit 44.9 % (41.0-53.0); Hemoglobin 14.7 g/dL (13.5-17.5); Lymphocytes # (auto) 1.4 uL; Lymphocytes % (auto) 12.5 % (10.0-50.0); Mean Corpuscular Hgb Conc. 32.7 g/dL (32.0-36.0); Mean Corpuscular Volume 88.6 fL (80.0-100.0); Monocytes # (auto) 1.1 uL; Monocytes % (auto) 9.4 % (0.0-12.0); Neutrophils # (auto) 8.7 uL; Neutrophils % (auto) 75.1 % (37.0-80.0); Platelet Count (auto) 151 10^3/uL (140-450); Red Blood Cells 5.07 10^6/uL (4.5-5.90); Red Cell Distribution Width 14.7 % (11.8-14.3); White Blood Cell 11.5 10^3/uL (4.4-10.8)
[2017-12-07] MEDS: ACETAMINOPHEN 325 MG TAB PO PRN (08:41)
[2017-12-07] MEDS ORDERED: MORPHINE SULFATE 10 MG/ML INJ 1ML SDV IV PRN ×2 (09:00)
[2017-12-07] MEDS: METOPROLOL SUCCINATE XL 50 MG TAB PO SCH ×2 (10:00→21:51)
[2017-12-07] MEDS: BUDESONIDE (INHALATION) 0.5 MG/2 ML NEB NEB SCH ×2 (10:00→20:55)
[2017-12-07] MEDS: LEVOFLOXACIN 750MG 150 ML IV SCH (11:12)
[2017-12-07] MEDS: LORATADINE 10 MG TAB PO SCH (11:13)
[2017-12-07] MEDS: ALLOPURINOL 100 MG TAB PO SCH (11:13)
[2017-12-07] MEDS: APIXABAN 2.5 MG TAB PO SCH ×2 (11:14→21:51)
[2017-12-07] MEDS: CLOPIDOGREL BISULFATE 75 MG TAB PO SCH (11:14)
[2017-12-07] MEDS: POTASSIUM CHL 10 Meq TABLET PO SCH (11:14)
[2017-12-07] MEDS ORDERED: AMIODARONE HCL 200 MG TAB PO ONE (13:30)
[2017-12-08 05:00] VITALS: BP 100/67
[2017-12-08] MEDS: FUROSEMIDE 40 MG/4 ML VIAL IV SCH (06:00)
[2017-12-08 08:00] VITALS: BP 108/70
[2017-12-08 09:00] VITALS: BP 108/70
[2017-12-08] MEDS: LEVOFLOXACIN 750MG 150 ML IV SCH (09:34)
[2017-12-08] MEDS: LORATADINE 10 MG TAB PO SCH (09:34)
[2017-12-08] MEDS: CLOPIDOGREL BISULFATE 75 MG TAB PO SCH (09:34)
[2017-12-08] MEDS: METOPROLOL SUCCINATE XL 50 MG TAB PO SCH (09:35)
[2017-12-08] MEDS: APIXABAN 2.5 MG TAB PO SCH (09:35)
[2017-12-08] MEDS: DIGOXIN 0.125 MG TAB PO SCH (09:35)
[2017-12-08] MEDS: ALLOPURINOL 100 MG TAB PO SCH (09:36)
[2017-12-08] MEDS: POTASSIUM CHL 10 Meq TABLET PO SCH (09:36)
[2017-12-08] MEDS ORDERED: AMIODARONE HCL 200 MG TAB PO SCH (10:00)
[2017-12-08] MEDS: BUDESONIDE (INHALATION) 0.5 MG/2 ML NEB NEB SCH (10:49)
== END 2017-12-08 17:00 | disposition home or self-care (01) | DRG 280 ==
LOC: ER 13:46 → EDUNIT# 13:46 → EDBD 13:46 → TELE 13:47 → TELE-EAST 20:00
PROVIDERS: ADMIT Internal Medicine; ATTEND Internal Medicine
PROC: 5A09357 Assistance with Respiratory Ventilation, Less than 24 Consecutive Hours, Continuous Positive Airway Pressure (ICD-10-PCS; principal; 2017-12-06)
PROC: 5A09357 Assistance with Respiratory Ventilation, Less than 24 Consecutive Hours, Continuous Positive Airway Pressure (ICD-10-PCS; 2017-12-07)
DX: I21.4 Non-ST elevation (NSTEMI) myocardial infarction (principal); J96.01 Acute respiratory failure with hypoxia; E43 Unspecified severe protein-calorie malnutrition; I50.23 Acute on chronic systolic (congestive) heart failure; I42.9 Cardiomyopathy, unspecified; E11.22 Type 2 diabetes mellitus with diabetic chronic kidney disease; I48.91 Unspecified atrial fibrillation; I45.10 Unspecified right bundle-branch block; I48.92 Unspecified atrial flutter; I13.0 Hypertensive heart and chronic kidney disease with heart failure and stage 1 through stage 4 chronic kidney disease, or unspecified chronic kidney disease; M10.9 Gout, unspecified; I25.119 Atherosclerotic heart disease of native coronary artery with unspecified angina pectoris; J44.9 Chronic obstructive pulmonary disease, unspecified; N18.3 Chronic kidney disease, stage 3 (moderate); Z82.49 Family history of ischemic heart disease and other diseases of the circulatory system; Z83.3 Family history of diabetes mellitus; Z87.01 Personal history of pneumonia (recurrent); I25.2 Old myocardial infarction; Z95.5 Presence of coronary angioplasty implant and graft; Z68.25 Body mass index [BMI] 25.0-25.9, adult
CPT/HCPCS: 36415; 71045; 71046; 80053; 80162; 83735; 83880; 84443; 84484; 85025; 85379; 85610; 85730; 87081; 93005; 94640; 94761; 96361; 96374; 96375; J1956; J2405

== ENCOUNTER 2017-12-11 03:55 | Emergency (ER) | payer OTHER ==
[~2017-12-11] VITALS: Ht 177.8 cm; Wt 68.0 kg
[2017-12-11] MEDS ORDERED: HYDROcodone-ACET 10/325MG TAB PO ONE (08:30)
[2017-12-11 09:47] LABS: Basophils # (auto) 0 uL; Basophils % (auto) 0.3 % (0.0-2.0); Eosinophils # (auto) 0.1 uL; Eosinophils % (auto) 0.7 % (0.0-7.0); Hematocrit 42.8 % (41.0-53.0); Hemoglobin 13.9 g/dL (13.5-17.5); Lymphocytes # (auto) 0.8 uL; Lymphocytes % (auto) 7.1 % (10.0-50.0); Mean Corpuscular Hemoglobin 29.1 pg (28.0-32.0); Mean Corpuscular Hgb Conc. 32.6 g/dL (32.0-36.0); Mean Corpuscular Volume 89.3 fL (80.0-100.0); Monocytes # (auto) 0.8 uL; Monocytes % (auto) 7.4 % (0.0-12.0); Neutrophils # (auto) 9.2 uL; Neutrophils % (auto) 84.5 % (37.0-80.0); Platelet Count (auto) 131 10^3/uL (140-450); Red Blood Cells 4.79 10^6/uL (4.5-5.90); Red Cell Distribution Width 15.2 % (11.8-14.3); White Blood Cell 10.9 10^3/uL (4.4-10.8)
[2017-12-11 10:01] LABS: INR 0.95 (0.9-1.15); Prothrombin Time 10.4 sec (9.37-12.3)
[2017-12-11 10:17] LABS: BUN/Creatinine Ratio 15.9; Bilirubin, Total 1.1 mg/dL (0.2-1.0); Calcium 8.5 mg/dL (8.5-10.1); Potassium 4.5 mmol/L (3.5-5.1); Total Protein 7.4 g/dL (6.4-8.2); Uric Acid 6.1 mg/dL (3.5-7.2)
[2017-12-11 17:09] VITALS: BP 126/84
== END 2017-12-11 12:31 | disposition home or self-care (01) ==
LOC: EDBD 03:55 → ER 04:08
DX: L03.116 Cellulitis of left lower limb (principal); I13.0 Hypertensive heart and chronic kidney disease with heart failure and stage 1 through stage 4 chronic kidney disease, or unspecified chronic kidney disease; I50.9 Heart failure, unspecified; E11.22 Type 2 diabetes mellitus with diabetic chronic kidney disease; N18.9 Chronic kidney disease, unspecified; I25.2 Old myocardial infarction; I25.10 Atherosclerotic heart disease of native coronary artery without angina pectoris; E78.00 Pure hypercholesterolemia, unspecified; Z95.0 Presence of cardiac pacemaker; Z88.8 Allergy status to other drugs, medicaments and biological substances; Z79.2 Long term (current) use of antibiotics; Z79.899 Other long term (current) drug therapy
CPT/HCPCS: 36415; 73600; 80053; 84484; 84550; 85025; 85610; 85730; 93005; 93970

== ENCOUNTER 2017-12-26 05:01 | Emergency (ER) | payer OTHER ==
[~2017-12-26] VITALS: Ht 172.7 cm; Wt 83.9 kg
[2017-12-26 05:51] LABS: Basophils # (auto) 0.2 uL; Basophils % (auto) 1.6 % (0.0-2.0); Eosinophils # (auto) 0.1 uL; Eosinophils % (auto) 0.7 % (0.0-7.0); Hematocrit 43.5 % (41.0-53.0); Hemoglobin 14.6 g/dL (13.5-17.5); Lymphocytes # (auto) 1.7 uL; Lymphocytes % (auto) 16.1 % (10.0-50.0); Mean Corpuscular Hemoglobin 29.8 pg (28.0-32.0); Mean Corpuscular Hgb Conc. 33.6 g/dL (32.0-36.0); Mean Corpuscular Volume 88.6 fL (80.0-100.0); Monocytes # (auto) 1.1 uL; Monocytes % (auto) 10.7 % (0.0-12.0); Neutrophils # (auto) 7.5 uL; Neutrophils % (auto) 70.9 % (37.0-80.0); Nucleated Red Blood Cells % 0.1 %; Platelet Count (auto) 249 10^3/uL (140-450); Red Blood Cells 4.91 10^6/uL (4.5-5.90); Red Cell Distribution Width 16.4 % (11.8-14.3); White Blood Cell 10.6 10^3/uL (4.4-10.8)
[2017-12-26 06:18] LABS: Albumin 3.1 g/dL (3.4-5.0); BUN/Creatinine Ratio 9.7; Bilirubin, Total 0.8 mg/dL (0.2-1.0); Calcium 8.7 mg/dL (8.5-10.1); Potassium 4.8 mmol/L (3.5-5.1); Total Protein 8.5 g/dL (6.4-8.2); Uric Acid 9.5 mg/dL (3.5-7.2)
[2017-12-26] MEDS ORDERED: SODIUM CHLORIDE 0.9% 1,000 ML IV ONE (07:23)
[2017-12-26] MEDS ORDERED: KETOROLAC TROMETH 60MG/2ML VIAL IM ONE (07:45)
[2017-12-26 08:02] VITALS: BP 152/95
== END 2017-12-26 11:02 | disposition home or self-care (01) ==
LOC: EDBD 05:01 → ER 05:05
DX: G89.29 Other chronic pain (principal); M79.672 Pain in left foot; I48.91 Unspecified atrial fibrillation; I25.10 Atherosclerotic heart disease of native coronary artery without angina pectoris; I25.2 Old myocardial infarction; E78.00 Pure hypercholesterolemia, unspecified; I13.0 Hypertensive heart and chronic kidney disease with heart failure and stage 1 through stage 4 chronic kidney disease, or unspecified chronic kidney disease; E11.22 Type 2 diabetes mellitus with diabetic chronic kidney disease; N18.9 Chronic kidney disease, unspecified; I50.9 Heart failure, unspecified; Z95.0 Presence of cardiac pacemaker; Z88.8 Allergy status to other drugs, medicaments and biological substances; Z79.2 Long term (current) use of antibiotics; Z79.899 Other long term (current) drug therapy
CPT/HCPCS: 36415; 80053; 84550; 85025; 94761; 96360; 96372; 99284; J1885; J7030

== ENCOUNTER 2018-01-06 16:22 | Inpatient (IN) | payer OTHER ==
[~2018-01-06] VITALS: Ht 172.7 cm; Wt 86.6 kg
[2018-01-06 17:22] LABS: Basophils # (auto) 0.1 uL; Basophils % (auto) 1.1 % (0.0-2.0); Eosinophils # (auto) 0.2 uL; Hematocrit 37.9 % (41.0-53.0); Hemoglobin 12.1 g/dL (13.5-17.5); Lymphocytes # (auto) 1.1 uL; Lymphocytes % (auto) 13.1 % (10.0-50.0); Mean Corpuscular Hemoglobin 28.6 pg (28.0-32.0); Mean Corpuscular Volume 89.5 fL (80.0-100.0); Monocytes # (auto) 0.8 uL; Monocytes % (auto) 8.8 % (0.0-12.0); Neutrophils # (auto) 6.5 uL; Nucleated Red Blood Cells % 0.1 %; Platelet Count (auto) 177 10^3/uL (140-450); Red Blood Cells 4.24 10^6/uL (4.5-5.90); Red Cell Distribution Width 16.4 % (11.8-14.3); White Blood Cell 8.7 10^3/uL (4.4-10.8)
[2018-01-06 17:36] LABS: Albumin 2.8 g/dL (3.4-5.0); BUN/Creatinine Ratio 13.2; Calcium 8.1 mg/dL (8.5-10.1); Potassium 3.6 mmol/L (3.5-5.1)
[2018-01-06 17:39] LABS: Bilirubin, Total 0.3 mg/dL (0.2-1.0)
[2018-01-06 20:37] LABS: Magnesium 2.2 mg/dL (1.6-2.6)
[2018-01-06 20:49] LABS: INR 0.95 (0.9-1.15); Partial Thromboplastin Time 29.1 sec (22.64-33.71); Prothrombin Time 10.4 sec (9.37-12.3)
[2018-01-06 21:09] LABS: Urine Bacteria NONE SEEN /hpf (None Seen); Urine Blood 3+ /uL (Negative); Urine Hyaline Cast FEW /lpf (0 - 2); Urine Mucus FEW (None Seen); Urine Specific Gravity 1.008 (1.001-1.035); Urine WBC 2 /hpf (0 - 3)
[2018-01-07] VITALS (8 sets, daily range): BP systolic 124–192; BP diastolic 69–108
[2018-01-07] MEDS ORDERED: FUROSEMIDE 20 MG/2 ML VIAL IV ONE (00:15)
[2018-01-07] MEDS ORDERED: DOCUSATE SOD 100 MG CAP PO PRN (00:30)
[2018-01-07] MEDS ORDERED: MORPHINE SULFATE 4 MG/ML SYR/VIAL IV PRN ×2 (00:30)
[2018-01-07] MEDS ORDERED: NITROGLYCERIN 0.4 MG SL TAB SL PRN (00:30)
[2018-01-07] MEDS ORDERED: TEMAZEPAM 15 MG CAP PO PRN (00:30)
[2018-01-07] MEDS ORDERED: ALBUTEROL SULF 2.5 MG/0.5ML(0.5%) NEB SOLN NEB PRN (00:30)
[2018-01-07] MEDS ORDERED: ONDANSETRON HCL 4 MG/2 ML VIAL IV PRN (00:30)
[2018-01-07] MEDS ORDERED: ACETAMINOPHEN 325 MG TAB PO PRN (00:30)
[2018-01-07] MEDS ORDERED: DEXTROSE (50%) 50ML SYRG IV PRN (00:30)
[2018-01-07] MEDS: HYDROcodone-ACET 5/325MG TAB PO PRN ×2 (02:28→12:38)
[2018-01-07] MEDS: ACCU-CHEK COMFORT CURVE STRIP VI SCH ×3 (05:36→17:28)
[2018-01-07] MEDS: InsuLIN REG 1unit/0.01ml Soln (100units/ml) SC SCH ×3 (05:37→17:29)
[2018-01-07] MEDS ORDERED: PNEUMOCOCCAL VACC POLYS 25 MCG/0.5 ML VIAL IM ONE (06:00)
[2018-01-07] MEDS ORDERED: APIXABAN 2.5 MG TAB PO SCH (10:00)
[2018-01-07] MEDS: FUROSEMIDE 40 MG TAB PO SCH (10:00)
[2018-01-07] MEDS: FAMOTIDINE 20 MG TAB PO SCH ×2 (10:01→22:15)
[2018-01-07] MEDS: METOPROLOL TARTRATE 50 MG TAB PO SCH ×2 (10:01→22:15)
[2018-01-07] MEDS: ENALAPRIL MALEATE 2.5 MG TAB PO SCH ×2 (10:01→22:16)
[2018-01-07] MEDS: DIGOXIN 0.125 MG TAB PO SCH (10:02)
[2018-01-07 10:14] LABS: Hematocrit 38.1 % (41.0-53.0); Hemoglobin 12.3 g/dL (13.5-17.5)
[2018-01-07] MEDS ORDERED: IBUP800T24 PO (11:43)
[2018-01-07] MEDS ORDERED: CLOP75TA28 PO (11:43)
[2018-01-07] MEDS ORDERED: FURO20TA PO (11:43)
[2018-01-07] MEDS: CLOPIDOGREL BISULFATE 75 MG TAB PO SCH (12:37)
[2018-01-07] MEDS: predniSONE 20 MG TAB PO SCH (12:37)
[2018-01-07] MEDS: DOXYCYCLINE 100 MG TAB/CAP PO SCH ×2 (12:37→22:15)
[2018-01-07] MEDS: IPRATROPIUM BROM 0.5 MG/2.5ML INH SOL NEB SCH ×2 (13:15→19:18)
[2018-01-07] MEDS: ALBUTEROL SULF 2.5 MG/0.5ML(0.5%) NEB SOLN NEB SCH ×2 (13:15→19:19)
[2018-01-07] MEDS: ATORVASTATIN 20 MG TAB PO SCH (22:14)
[2018-01-08] MEDS: ACCU-CHEK COMFORT CURVE STRIP VI SCH ×4 (00:06→18:15)
[2018-01-08] MEDS: InsuLIN REG 1unit/0.01ml Soln (100units/ml) SC SCH ×4 (00:07→18:14)
[2018-01-08] MEDS: ALBUTEROL SULF 2.5 MG/0.5ML(0.5%) NEB SOLN NEB SCH ×4 (01:10→19:42)
[2018-01-08] MEDS: IPRATROPIUM BROM 0.5 MG/2.5ML INH SOL NEB SCH ×4 (01:10→19:42)
[2018-01-08 04:40] VITALS: BP 150/40
[2018-01-08 07:29] LABS: Basophils # (auto) 0 uL; Basophils % (auto) 0.3 % (0.0-2.0); Eosinophils # (auto) 0 uL; Eosinophils % (auto) 0.2 % (0.0-7.0); Hematocrit 37.5 % (41.0-53.0); Hemoglobin 12.3 g/dL (13.5-17.5); Lymphocytes # (auto) 1.4 uL; Lymphocytes % (auto) 12.8 % (10.0-50.0); Mean Corpuscular Hemoglobin 28.8 pg (28.0-32.0); Mean Corpuscular Hgb Conc. 32.8 g/dL (32.0-36.0); Mean Corpuscular Volume 87.8 fL (80.0-100.0); Monocytes # (auto) 0.8 uL; Monocytes % (auto) 7.3 % (0.0-12.0); Neutrophils # (auto) 8.4 uL; Neutrophils % (auto) 79.4 % (37.0-80.0); Nucleated Red Blood Cells % 0.1 %; Platelet Count (auto) 193 10^3/uL (140-450); Red Blood Cells 4.27 10^6/uL (4.5-5.90); Red Cell Distribution Width 16.4 % (11.8-14.3); White Blood Cell 10.6 10^3/uL (4.4-10.8)
[2018-01-08 07:30] LABS: Albumin 2.7 g/dL (3.4-5.0); BUN/Creatinine Ratio 16.5; Bilirubin, Total 0.5 mg/dL (0.2-1.0); Calcium 8.3 mg/dL (8.5-10.1); Potassium 3.8 mmol/L (3.5-5.1); Total Protein 7.4 g/dL (6.4-8.2)
[2018-01-08 09:00] VITALS: BP 132/63
[2018-01-08] MEDS: CLOPIDOGREL BISULFATE 75 MG TAB PO SCH (10:17)
[2018-01-08] MEDS: FAMOTIDINE 20 MG TAB PO SCH ×2 (10:17→22:17)
[2018-01-08] MEDS: predniSONE 20 MG TAB PO SCH (10:18)
[2018-01-08] MEDS: DOXYCYCLINE 100 MG TAB/CAP PO SCH ×2 (10:18→22:17)
[2018-01-08] MEDS: FUROSEMIDE 40 MG TAB PO SCH (10:18)
[2018-01-08] MEDS: METOPROLOL TARTRATE 50 MG TAB PO SCH ×2 (10:18→22:18)
[2018-01-08] MEDS: ASPirin-EC 81 mg tab PO SCH (10:18)
[2018-01-08] MEDS: ENOXAPARIN SOD 40 MG/0.4 ML SYRINGE SC SCH (10:19)
[2018-01-08] MEDS: DIGOXIN 0.125 MG TAB PO SCH (10:19)
[2018-01-08 13:00] VITALS: BP 131/65
[2018-01-08 17:26] VITALS: BP 158/85
[2018-01-08 22:00] VITALS: BP 134/86
[2018-01-08] MEDS: ENALAPRIL MALEATE 2.5 MG TAB PO SCH (22:17)
[2018-01-08] MEDS: ATORVASTATIN 20 MG TAB PO SCH (22:18)
[2018-01-09] MEDS: ACCU-CHEK COMFORT CURVE STRIP VI SCH ×3 (00:08→12:35)
[2018-01-09] MEDS: ALBUTEROL SULF 2.5 MG/0.5ML(0.5%) NEB SOLN NEB SCH ×3 (00:55→11:21)
[2018-01-09] MEDS: IPRATROPIUM BROM 0.5 MG/2.5ML INH SOL NEB SCH ×3 (00:55→11:21)
[2018-01-09 05:00] VITALS: BP 155/77
[2018-01-09 05:33] LABS: Basophils # (auto) 0 uL; Basophils % (auto) 0.3 % (0.0-2.0); Eosinophils # (auto) 0 uL; Eosinophils % (auto) 0.3 % (0.0-7.0); Hematocrit 37.1 % (41.0-53.0); Hemoglobin 12.2 g/dL (13.5-17.5); Lymphocytes # (auto) 1.6 uL; Lymphocytes % (auto) 16.2 % (10.0-50.0); Mean Corpuscular Hemoglobin 28.9 pg (28.0-32.0); Mean Corpuscular Hgb Conc. 32.8 g/dL (32.0-36.0); Mean Corpuscular Volume 88.2 fL (80.0-100.0); Monocytes # (auto) 0.7 uL; Neutrophils # (auto) 7.4 uL; Neutrophils % (auto) 76.2 % (37.0-80.0); Nucleated Red Blood Cells % 0.1 %; Platelet Count (auto) 194 10^3/uL (140-450); Red Blood Cells 4.21 10^6/uL (4.5-5.90); Red Cell Distribution Width 16.6 % (11.8-14.3); White Blood Cell 9.7 10^3/uL (4.4-10.8)
[2018-01-09] MEDS: InsuLIN REG 1unit/0.01ml Soln (100units/ml) SC SCH ×3 (06:00→12:00)
[2018-01-09 06:02] LABS: BUN/Creatinine Ratio 23.7; Calcium 8.5 mg/dL (8.5-10.1); Potassium 3.3 mmol/L (3.5-5.1)
[2018-01-09 08:25] VITALS: BP 157/87
[2018-01-09] MEDS: ENOXAPARIN SOD 40 MG/0.4 ML SYRINGE SC SCH (09:14)
[2018-01-09] MEDS: ENALAPRIL MALEATE 2.5 MG TAB PO SCH (09:14)
[2018-01-09] MEDS: FUROSEMIDE 40 MG TAB PO SCH (09:15)
[2018-01-09] MEDS: DOXYCYCLINE 100 MG TAB/CAP PO SCH (09:15)
[2018-01-09] MEDS: FAMOTIDINE 20 MG TAB PO SCH (09:15)
[2018-01-09] MEDS: CLOPIDOGREL BISULFATE 75 MG TAB PO SCH (09:16)
[2018-01-09] MEDS: METOPROLOL TARTRATE 50 MG TAB PO SCH (09:16)
[2018-01-09] MEDS: DIGOXIN 0.125 MG TAB PO SCH (09:16)
[2018-01-09] MEDS: ASPirin-EC 81 mg tab PO SCH (09:17)
[2018-01-09] MEDS: predniSONE 20 MG TAB PO SCH (09:17)
[2018-01-09] MEDS ORDERED: SPIRONOLACTONE 25 MG TAB PO SCH (10:00)
[2018-01-09 12:45] VITALS: BP 146/87
[2018-01-09] MEDS ORDERED: METH4PAK PO (13:44)
[2018-01-09] MEDS ORDERED: DOX100T PO (13:44)
[2018-01-09] MEDS ORDERED: POTASSIUM CHL 20 Meq TABLET PO ONE (13:45)
[2018-01-09 16:22] VITALS: BP 160/63
== END 2018-01-09 18:00 | disposition home or self-care (01) | DRG 698 ==
LOC: ER 16:26 → TELE 16:27 → TELE-WESTW 01-07 01:50
PROVIDERS: ADMIT Nurse Practitioner; ATTEND Internal Medicine
DX: N32.9 Bladder disorder, unspecified (principal); I50.23 Acute on chronic systolic (congestive) heart failure; E44.0 Moderate protein-calorie malnutrition; E11.22 Type 2 diabetes mellitus with diabetic chronic kidney disease; I49.5 Sick sinus syndrome; J44.1 Chronic obstructive pulmonary disease with (acute) exacerbation; I48.2 Chronic atrial fibrillation; E78.5 Hyperlipidemia, unspecified; I25.10 Atherosclerotic heart disease of native coronary artery without angina pectoris; I13.0 Hypertensive heart and chronic kidney disease with heart failure and stage 1 through stage 4 chronic kidney disease, or unspecified chronic kidney disease; R31.0 Gross hematuria; N18.9 Chronic kidney disease, unspecified; K57.30 Diverticulosis of large intestine without perforation or abscess without bleeding; M10.9 Gout, unspecified; Z82.49 Family history of ischemic heart disease and other diseases of the circulatory system; Z95.5 Presence of coronary angioplasty implant and graft; Z68.29 Body mass index [BMI] 29.0-29.9, adult; Z83.3 Family history of diabetes mellitus; Z88.8 Allergy status to other drugs, medicaments and biological substances; Z91.018 Allergy to other foods; Z23 Encounter for immunization; Z95.0 Presence of cardiac pacemaker
CPT/HCPCS: 36415; 71045; 74176; 80048; 80053; 81001; 82962; 83735; 83880; 84443; 84484; 85014; 85018; 85025; 85379; 85610; 85730; 87081; 93005; 93306; 94640; 94761; 96374; 97163; J1815

== ENCOUNTER 2018-01-23 12:28 | Inpatient (IN) | payer MEDICARE, OTHER ==
[~2018-01-23] VITALS: Ht 165.1 cm; Wt 84.4 kg
[~2018-01-23 12:28] MED LIST changes: +CLOP75TA28 PO; +DOX100T PO; +FURO20TA PO; -Furosemide PO; -LEVO750T64 PO; +METH4PAK PO
[2018-01-23 13:47] LABS: Basophils # (auto) 0.1 uL; Basophils % (auto) 0.7 % (0.0-2.0); Eosinophils # (auto) 0.5 uL; Eosinophils % (auto) 6.3 % (0.0-7.0); Hematocrit 43.2 % (41.0-53.0); Hemoglobin 13.9 g/dL (13.5-17.5); Lymphocytes # (auto) 1.4 uL; Lymphocytes % (auto) 17.3 % (10.0-50.0); Mean Corpuscular Hemoglobin 28.5 pg (28.0-32.0); Mean Corpuscular Hgb Conc. 32.3 g/dL (32.0-36.0); Mean Corpuscular Volume 88.2 fL (80.0-100.0); Monocytes # (auto) 0.7 uL; Monocytes % (auto) 8.4 % (0.0-12.0); Neutrophils # (auto) 5.4 uL; Neutrophils % (auto) 67.3 % (37.0-80.0); Platelet Count (auto) 171 10^3/uL (140-450); Red Cell Distribution Width 16.6 % (11.8-14.3)
[2018-01-23 14:04] LABS: INR 0.93 (0.9-1.15); Partial Thromboplastin Time 24.8 sec (22.64-33.71); Prothrombin Time 10.1 sec (9.37-12.3)
[2018-01-23 14:15] LABS: Albumin 3.4 g/dL (3.4-5.0); BUN/Creatinine Ratio 13.3; Bilirubin, Total 0.5 mg/dL (0.2-1.0); Potassium 3.9 mmol/L (3.5-5.1); Total Protein 8.3 g/dL (6.4-8.2)
[2018-01-23] MEDS ORDERED: LEVOFLOXACIN 500MG 100 ML IV ONE (15:30)
[2018-01-23] MEDS ORDERED: methylPREDNISolone SOD SUCC 125 MG/2 ML VL IV ONE (15:30)
[2018-01-23] MEDS ORDERED: IPRATROPIUM BROM 0.5 MG/2.5ML INH SOL HHN ONE (15:30)
[2018-01-23] MEDS ORDERED: FUROSEMIDE 40 MG/4 ML VIAL IV ONE (15:30)
[2018-01-23] MEDS ORDERED: ALBUTEROL SULF 2.5 MG/0.5ML(0.5%) NEB SOLN HHN ONE (15:30)
[2018-01-23 16:14] LABS: Lactic Acid w/Reflex 2.6 mmol/L (0.4-2.0)
[2018-01-23 16:38] LABS: Urine Bacteria NONE SEEN /hpf (None Seen); Urine Blood 3+ /uL (Negative); Urine Mucus FEW (None Seen); Urine Specific Gravity 1.012 (1.001-1.035); Urine WBC 17 /hpf (0 - 3)
[2018-01-23] MEDS ORDERED: NITROGLYCERIN 0.4 MG SL TAB SL PRN (17:45)
[2018-01-23] MEDS ORDERED: MORPHINE SULFATE 4 MG/ML SYR/VIAL IV PRN ×2 (17:45)
[2018-01-23] MEDS ORDERED: ONDANSETRON HCL 4 MG/2 ML VIAL IV PRN (17:45)
[2018-01-23] MEDS ORDERED: cefTRIAXone 1GM/10ml IVPUSH 10 ML IV ONE (17:45)
[2018-01-23] MEDS ORDERED: VANCOMYCIN PER PHARMACY 0 MG IV SCH (17:45)
[2018-01-23] MEDS ORDERED: HYDROcodone-ACET 5/325MG TAB PO PRN (17:45)
[2018-01-23] MEDS ORDERED: ACETAMINOPHEN 325 MG TAB PO PRN (17:45)
[2018-01-23] MEDS ORDERED: PROMETHAZINE-DM 5 ML ORAL SYRUP PO PRN (17:45)
[2018-01-23] MEDS ORDERED: DOCUSATE SOD 100 MG CAP PO PRN (17:45)
[2018-01-23] MEDS ORDERED: VANCOMYCIN 1GM/250ML 250 ML IV SCH (18:45)
[2018-01-23] MEDS: IPRATROPIUM BROM 0.5 MG/2.5ML INH SOL NEB SCH (19:21)
[2018-01-23] MEDS: ALBUTEROL SULF 2.5 MG/0.5ML(0.5%) NEB SOLN NEB SCH (19:21)
[2018-01-23 19:51] VITALS: BP 95/69
[2018-01-23] MEDS: TEMAZEPAM 15 MG CAP PO PRN (21:26)
[2018-01-23] MEDS: ENALAPRIL MALEATE 2.5 MG TAB PO SCH (21:26)
[2018-01-23] MEDS: METOPROLOL SUCCINATE XL 50 MG TAB PO SCH (21:27)
[2018-01-23] MEDS: SODIUM CHLOR 0.9% PF (SALINE LOCK) 10ML VIAL IV SCH (21:27)
[2018-01-23 21:30] VITALS: BP 128/78
[2018-01-23 21:43] LABS: Lactic Acid w/Reflex 10.9 mmol/L (0.4-2.0)
[2018-01-23 22:17] VITALS: BP 128/78
[2018-01-23] MEDS: methylPREDNISolone SOD SUCC 40 MG/ML VL IV SCH (23:58)
[2018-01-24] MEDS: IPRATROPIUM BROM 0.5 MG/2.5ML INH SOL NEB SCH ×4 (00:59→19:17)
[2018-01-24] MEDS: ALBUTEROL SULF 2.5 MG/0.5ML(0.5%) NEB SOLN NEB SCH ×2 (00:59→07:14)
[2018-01-24 05:08] VITALS: BP 108/63
[2018-01-24] MEDS: SODIUM CHLOR 0.9% PF (SALINE LOCK) 10ML VIAL IV SCH ×3 (05:47→21:25)
[2018-01-24] MEDS: methylPREDNISolone SOD SUCC 40 MG/ML VL IV SCH (05:47)
[2018-01-24 07:01] LABS: Basophils # (auto) 0 uL; Eosinophils # (auto) 0 uL; Hematocrit 37.7 % (41.0-53.0); Hemoglobin 12.2 g/dL (13.5-17.5); Lymphocytes # (auto) 0.5 uL; Lymphocytes % (auto) 6.9 % (10.0-50.0); Mean Corpuscular Hemoglobin 28.6 pg (28.0-32.0); Mean Corpuscular Hgb Conc. 32.4 g/dL (32.0-36.0); Monocytes # (auto) 0 uL; Monocytes % (auto) 0.6 % (0.0-12.0); Neutrophils # (auto) 6.9 uL; Neutrophils % (auto) 92.5 % (37.0-80.0); Platelet Count (auto) 151 10^3/uL (140-450); Red Blood Cells 4.28 10^6/uL (4.5-5.90); Red Cell Distribution Width 16.5 % (11.8-14.3); White Blood Cell 7.5 10^3/uL (4.4-10.8)
[2018-01-24 07:12] LABS: Calcium 9.1 mg/dL (8.5-10.1); Potassium 4.7 mmol/L (3.5-5.1)
[2018-01-24 07:16] LABS: Albumin 3.1 g/dL (3.4-5.0)
[2018-01-24 07:19] LABS: Bilirubin, Total 0.6 mg/dL (0.2-1.0); Total Protein 7.2 g/dL (6.4-8.2)
[2018-01-24 09:00] VITALS: BP 118/72
[2018-01-24] MEDS: MULTIPLE VITAMIN TAB PO SCH (09:09)
[2018-01-24] MEDS: POTASSIUM CHL 10 Meq TABLET PO SCH (09:09)
[2018-01-24] MEDS: LORATADINE 10 MG TAB PO SCH (09:09)
[2018-01-24] MEDS: cefTRIAXone 1GM/10ml IVPUSH 10 ML IV SCH (09:09)
[2018-01-24] MEDS: ALLOPURINOL 100 MG TAB PO SCH (09:10)
[2018-01-24] MEDS: ENALAPRIL MALEATE 2.5 MG TAB PO SCH (09:10)
[2018-01-24] MEDS: METOPROLOL SUCCINATE XL 50 MG TAB PO SCH ×2 (09:10→21:26)
[2018-01-24] MEDS ORDERED: FUROSEMIDE 20 MG TAB PO SCH (10:00)
[2018-01-24] MEDS: CLOPIDOGREL BISULFATE 75 MG TAB PO SCH (10:49)
[2018-01-24 13:00] VITALS: BP 105/68
[2018-01-24 16:47] VITALS: BP 129/65
[2018-01-24] MEDS ORDERED: DEXTROSE (50%) 50ML SYRG IV PRN (17:15)
[2018-01-24] MEDS: ATORVASTATIN 20 MG TAB PO SCH (21:26)
[2018-01-24] MEDS: TEMAZEPAM 15 MG CAP PO PRN (21:27)
[2018-01-24] MEDS: ACCU-CHEK COMFORT CURVE STRIP VI SCH (21:27)
[2018-01-24] MEDS: InsuLIN REG 1unit/0.01ml Soln (100units/ml) SC SCH (21:32)
[2018-01-24 22:00] VITALS: BP 111/61
[2018-01-25] MEDS: IPRATROPIUM BROM 0.5 MG/2.5ML INH SOL NEB SCH ×4 (00:41→19:28)
[2018-01-25] MEDS: SODIUM CHLOR 0.9% PF (SALINE LOCK) 10ML VIAL IV SCH ×3 (05:42→22:27)
[2018-01-25] MEDS: InsuLIN REG 1unit/0.01ml Soln (100units/ml) SC SCH ×4 (05:42→22:00)
[2018-01-25 05:43] VITALS: BP 117/64
[2018-01-25] MEDS: ACCU-CHEK COMFORT CURVE STRIP VI SCH ×4 (05:43→22:26)
[2018-01-25 06:00] LABS: Basophils # (auto) 0 uL; Eosinophils # (auto) 0 uL; Hematocrit 36.5 % (41.0-53.0); Hemoglobin 11.9 g/dL (13.5-17.5); Lymphocytes # (auto) 1.3 uL; Lymphocytes % (auto) 7.4 % (10.0-50.0); Mean Corpuscular Hemoglobin 28.3 pg (28.0-32.0); Mean Corpuscular Hgb Conc. 32.5 g/dL (32.0-36.0); Monocytes # (auto) 0.7 uL; Monocytes % (auto) 4.3 % (0.0-12.0); Neutrophils # (auto) 15.1 uL; Neutrophils % (auto) 88.3 % (37.0-80.0); Platelet Count (auto) 151 10^3/uL (140-450); Red Blood Cells 4.19 10^6/uL (4.5-5.90); Red Cell Distribution Width 16.4 % (11.8-14.3); White Blood Cell 17.1 10^3/uL (4.4-10.8)
[2018-01-25 06:05] LABS: BUN/Creatinine Ratio 27.2; Calcium 8.8 mg/dL (8.5-10.1); Potassium 4.2 mmol/L (3.5-5.1)
[2018-01-25] MEDS: cefTRIAXone 1GM/10ml IVPUSH 10 ML IV SCH (08:36)
[2018-01-25 09:00] VITALS: BP 132/69
[2018-01-25] MEDS: MULTIPLE VITAMIN TAB PO SCH (09:09)
[2018-01-25] MEDS: METOPROLOL SUCCINATE XL 50 MG TAB PO SCH ×2 (09:10→22:23)
[2018-01-25] MEDS: CLOPIDOGREL BISULFATE 75 MG TAB PO SCH (09:11)
[2018-01-25] MEDS: LORATADINE 10 MG TAB PO SCH (09:11)
[2018-01-25] MEDS: POTASSIUM CHL 10 Meq TABLET PO SCH (09:11)
[2018-01-25] MEDS: ALLOPURINOL 100 MG TAB PO SCH (09:11)
[2018-01-25] MEDS ORDERED: DIGOXIN 0.125 MG TAB PO SCH (10:00)
[2018-01-25 13:00] VITALS: BP 126/62
[2018-01-25 17:00] VITALS: BP 116/69
[2018-01-25 22:00] VITALS: BP 121/73
[2018-01-25] MEDS: ATORVASTATIN 20 MG TAB PO SCH (22:22)
[2018-01-26] MEDS: IPRATROPIUM BROM 0.5 MG/2.5ML INH SOL NEB SCH ×3 (00:19→11:43)
[2018-01-26 05:23] VITALS: BP 153/85
[2018-01-26] MEDS: SODIUM CHLOR 0.9% PF (SALINE LOCK) 10ML VIAL IV SCH (06:04)
[2018-01-26] MEDS: InsuLIN REG 1unit/0.01ml Soln (100units/ml) SC SCH ×2 (06:34→11:30)
[2018-01-26] MEDS: ACCU-CHEK COMFORT CURVE STRIP VI SCH ×2 (06:34→11:40)
[2018-01-26 07:00] LABS: Basophils # (auto) 0 uL; Basophils % (auto) 0.6 % (0.0-2.0); Eosinophils # (auto) 0.5 uL; Eosinophils % (auto) 5.5 % (0.0-7.0); Hematocrit 38.3 % (41.0-53.0); Hemoglobin 12.6 g/dL (13.5-17.5); Lymphocytes # (auto) 1.9 uL; Lymphocytes % (auto) 21.8 % (10.0-50.0); Mean Corpuscular Hemoglobin 28.6 pg (28.0-32.0); Mean Corpuscular Hgb Conc. 32.8 g/dL (32.0-36.0); Mean Corpuscular Volume 87.2 fL (80.0-100.0); Monocytes # (auto) 0.7 uL; Monocytes % (auto) 7.8 % (0.0-12.0); Neutrophils # (auto) 5.6 uL; Neutrophils % (auto) 64.3 % (37.0-80.0); Platelet Count (auto) 155 10^3/uL (140-450); Red Blood Cells 4.39 10^6/uL (4.5-5.90); Red Cell Distribution Width 16.3 % (11.8-14.3); White Blood Cell 8.7 10^3/uL (4.4-10.8)
[2018-01-26 07:21] LABS: BUN/Creatinine Ratio 35.5; Calcium 8.6 mg/dL (8.5-10.1); Potassium 4.2 mmol/L (3.5-5.1)
[2018-01-26 08:27] VITALS: BP 143/87
[2018-01-26] MEDS: cefTRIAXone 1GM/10ml IVPUSH 10 ML IV SCH (09:11)
[2018-01-26] MEDS: LORATADINE 10 MG TAB PO SCH (09:11)
[2018-01-26] MEDS: CLOPIDOGREL BISULFATE 75 MG TAB PO SCH (09:11)
[2018-01-26] MEDS: POTASSIUM CHL 10 Meq TABLET PO SCH (09:11)
[2018-01-26] MEDS: ALLOPURINOL 100 MG TAB PO SCH (09:11)
[2018-01-26] MEDS: MULTIPLE VITAMIN TAB PO SCH (09:11)
[2018-01-26] MEDS: METOPROLOL SUCCINATE XL 50 MG TAB PO SCH (09:12)
[2018-01-26] MEDS ORDERED: ASPI-231 PO (10:38)
[2018-01-26 11:11] VITALS: BP 143/87
[2018-01-26 12:57] VITALS: BP 134/72
== END 2018-01-26 15:20 | DRG 695 ==
LOC: ER 12:28 → TELE 12:29 → TELE-WESTW 20:33
PROVIDERS: ADMIT Internal Medicine; ATTEND Internal Medicine
DX: R31.0 Gross hematuria (principal); I50.43 Acute on chronic combined systolic (congestive) and diastolic (congestive) heart failure; N17.9 Acute kidney failure, unspecified; E11.21 Type 2 diabetes mellitus with diabetic nephropathy; I48.0 Paroxysmal atrial fibrillation; I48.92 Unspecified atrial flutter; E11.22 Type 2 diabetes mellitus with diabetic chronic kidney disease; E44.1 Mild protein-calorie malnutrition; I13.0 Hypertensive heart and chronic kidney disease with heart failure and stage 1 through stage 4 chronic kidney disease, or unspecified chronic kidney disease; I50.22 Chronic systolic (congestive) heart failure; N18.3 Chronic kidney disease, stage 3 (moderate); J20.9 Acute bronchitis, unspecified; N32.9 Bladder disorder, unspecified; C67.9 Malignant neoplasm of bladder, unspecified; E78.5 Hyperlipidemia, unspecified; I25.10 Atherosclerotic heart disease of native coronary artery without angina pectoris; I25.5 Ischemic cardiomyopathy; T38.0X5A Adverse effect of glucocorticoids and synthetic analogues, initial encounter; M10.9 Gout, unspecified; T45.525A Adverse effect of antithrombotic drugs, initial encounter; Z79.01 Long term (current) use of anticoagulants; I25.2 Old myocardial infarction; Z82.49 Family history of ischemic heart disease and other diseases of the circulatory system; Z83.3 Family history of diabetes mellitus; Z91.19 Patient's noncompliance with other medical treatment and regimen; Z95.5 Presence of coronary angioplasty implant and graft; Z95.810 Presence of automatic (implantable) cardiac defibrillator; Y92.89 Other specified places as the place of occurrence of the external cause; Z68.31 Body mass index [BMI] 31.0-31.9, adult
CPT/HCPCS: 36415; 71045; 74176; 80048; 80053; 81001; 82962; 83036; 83605; 83735; 83880; 84443; 84484; 85025; 85610; 85730; 87040; 87086; 87804; 88108; 93005; 94640; 94644; 94761; 96365; 96367; 96375; 97163; J1815; J1956; J2405

== ENCOUNTER 2019-08-03 11:47 | Emergency (ER) | payer MEDICARE, MEDICAID ==
[~2019-08-03] VITALS: Ht 165.1 cm; Wt 88.0 kg
[~2019-08-03 11:47] MED LIST changes: -APIX2.5T PO; +ASPI-231 PO; -DOX100T PO; -ENA2.5T PO; +ENAL2.5T2 PO; +FURO1TAB33 PO; -FURO20TA PO; -METH4PAK PO; +METO-6 PO; -METO50TA7 PO
[2019-08-03 11:56] VITALS: BP 142/94
[2019-08-03 12:59] LABS: Basophils # (auto) 0 uL; Basophils % (auto) 0.7 % (0.0-2.0); Eosinophils # (auto) 0.3 uL; Eosinophils % (auto) 4.6 % (0.0-7.0); Hematocrit 44.6 % (41.0-53.0); Hemoglobin 14.8 g/dL (13.5-17.5); Lymphocytes # (auto) 1.1 uL; Lymphocytes % (auto) 16.7 % (10.0-50.0); Mean Corpuscular Hemoglobin 31.6 pg (28.0-32.0); Mean Corpuscular Hgb Conc. 33.2 g/dL (32.0-36.0); Monocytes # (auto) 0.4 uL; Monocytes % (auto) 6.9 % (0.0-12.0); Neutrophils # (auto) 4.6 uL; Neutrophils % (auto) 71.1 % (37.0-80.0); Nucleated Red Blood Cells % 0.1 %; Platelet Count (auto) 185 10^3/uL (140-450); Red Cell Distribution Width 13.5 % (11.8-14.3); White Blood Cell 6.4 10^3/uL (4.4-10.8)
[2019-08-03] MEDS ORDERED: KETOROLAC TROMETH 60MG/2ML VIAL IM ONE (13:00)
[2019-08-03] MEDS ORDERED: methylPREDNISolone SOD SUCC 125 MG/2 ML VL IM ONE (13:00)
[2019-08-03 13:17] LABS: Calcium 8.5 mg/dL (8.5-10.1); Potassium 4.2 mmol/L (3.5-5.1)
[2019-08-03 13:19] LABS: BUN/Creatinine Ratio 12.6; Uric Acid 10.5 mg/dL (3.5-7.2)
== END 2019-08-03 14:24 | disposition home or self-care (01) ==
LOC: ER 11:47 → EDBD 11:47 → ER 14:24
DX: M10.9 Gout, unspecified (principal); I13.0 Hypertensive heart and chronic kidney disease with heart failure and stage 1 through stage 4 chronic kidney disease, or unspecified chronic kidney disease; N18.9 Chronic kidney disease, unspecified; I50.9 Heart failure, unspecified; I25.10 Atherosclerotic heart disease of native coronary artery without angina pectoris; E78.00 Pure hypercholesterolemia, unspecified; I25.2 Old myocardial infarction; Z95.0 Presence of cardiac pacemaker; Z88.8 Allergy status to other drugs, medicaments and biological substances; Z79.82 Long term (current) use of aspirin; Z79.01 Long term (current) use of anticoagulants; Z79.899 Other long term (current) drug therapy
CPT/HCPCS: 36415; 73562; 73610; 80048; 84550; 85025; 96372; 99284; J1885; J2930